=== PATIENT | female | born 1940 | race Caucasian/White ===

== ENCOUNTER 2017-12-27 13:50 | Observation (INO) | payer MEDICARE ==
[~2017-12-27] VITALS: Ht 162.6 cm; Wt 98.3 kg
[~2017-12-27 13:50] MED LIST: DARV; DEXAMETHASONE SOD PHOS 4 MG/ML VIAL IV ONE; ENAL20TA81; EXCEDRIN MIGRAINE; EZET10; FELO10TA; GARL500T; HYDR-2768; LIDOCAINE HCL 1% PF 5 ML SYRINGE OTHER ONE; LORA-392; OMEGA; ONDANSETRON HCL 4 MG/2 ML VIAL IV ONE; PHENYLEPH/NS 1000 MCG/10 ML SYR IV ONE; PRED20; PROPOFOL 200 MG/20 ML AMP IV ONE; PROZ20CA11; ROCURONIUM INJ 50 MG/5 ML SYRINGE IV PUSH ONE; SODIUM CHLORID 0.9% 500 ML INJ 500 ML IV ONE; TAB-TAB; VITA10002; VITA400C70; VITA500T10; [UNRECOGNIZED DRUG - OTHER]; [UNRECOGNIZED DRUG - OTHER]; [UNRECOGNIZED DRUG - OTHER]; [UNRECOGNIZED DRUG - OTHER]; [UNRECOGNIZED DRUG - OTHER]
[2017-12-27] MEDS ORDERED: LORazepam 1 MG TAB SL SCH (14:30)
[2017-12-27] MEDS ORDERED: POVIDONE IODINE 5% (ANTISEPSIS KIT) 4 APPLICATIONS EACH NARE PRN (14:30)
[2017-12-27] MEDS ORDERED: METOPROLOL TARTRATE 25 MG TAB PO PRN (14:30)
[2017-12-27] MEDS ORDERED: LACTATED RINGER'S 1000 ML IV PRN (14:30)
[2017-12-27] MEDS ORDERED: SODIUM CHLORID 0.9% 500 ML IV PRN (14:30)
[2017-12-27] MEDS ORDERED: CHLORHEXIDINE GLUCONATE 2 % 1 PACK (2 CLOTHS) TOPICAL PRN (14:30)
[2017-12-27] MEDS ORDERED: LOSA25TA PO (14:31)
[2017-12-27] MEDS ORDERED: LORA0.5T PO (14:31)
[2017-12-27] MEDS ORDERED: DILT120C9 PO (14:31)
[2017-12-27] MEDS ORDERED: WARF-23 PO (14:31)
[2017-12-27] MEDS ORDERED: TYLETAB34 PO (14:31)
[2017-12-27] MEDS ORDERED: METO50TA PO (14:31)
[2017-12-27] MEDS ORDERED: TRAM50TA PO (14:31)
[2017-12-27] MEDS ORDERED: ESCI20TA PO (14:31)
[2017-12-27] MEDS ORDERED: LEVO50TA4 PO (14:31)
[2017-12-27] MEDS ORDERED: FURO40TA PO (14:31)
[2017-12-27 14:33] VITALS: BP 151/90; PULSE 109; RESP 16; TEMP 97.6; O2SAT 94
[2017-12-27 14:36] LABS: AUTOMATED NEUTROPHIL # 3.3 TH/MM3 (1.8-7.7); BASOPHIL % 0.5 % (0.0-2.0); EOSINOPHIL # 0.1 TH/MM3 (0-0.4); HEMATOCRIT 40.9 % (35.0-46.0); HEMOGLOBIN 13.8 GM/DL (11.6-15.3); LYMPH % 24.8 % (9.0-44.0); LYMPHOCYTE # 1.3 TH/MM3 (1.0-4.8); MEAN CELL VOLUME 96.5 FL (80.0-100.0); MEAN CORPUSCULAR HEMOGLOBIN 32.6 PG (27.0-34.0); MEAN CORPUSCULAR HGB CONC 33.8 % (32.0-36.0); MEAN PLATELET VOLUME 8.7 FL (7.0-11.0); MONOCYTE # 0.5 TH/MM3 (0-0.9); NEUT % 63.7 % (16.0-70.0); PLATELET COUNT 185 TH/MM3 (150-450); RED BLOOD COUNT 4.24 MIL/MM3 (4.00-5.30); RED CELL DISTRIBUTION WIDTH 15.9 % (11.6-17.2); WHITE BLOOD COUNT 5.1 TH/MM3 (4.0-11.0)
[2017-12-27 14:50] LABS: INTERNATIONAL NORMALIZED RATIO 2.2 RATIO; PROTHROMBIN TIME - PATIENT 22.7 SEC (9.8-11.6)
[2017-12-27 15:06] LABS: BICARBONATE 26.2 MEQ/L (21.0-32.0); CALCIUM 8.8 MG/DL (8.5-10.1); CREATININE 0.9 MG/DL (0.50-1.00)
[2017-12-27] MEDS ORDERED: LEVOFLOXACIN 500 MG PREMIX INJ 100 ML IV ONE (15:15)
[2017-12-27] MEDS ORDERED: ISOPROTERENOL INJ PREMIX 50 ML IV ONE (16:38)
[2017-12-27] MEDS ORDERED: HEPARIN-D5W 25,000 U/250 ML 250 ML ONE (16:38)
[2017-12-27] MEDS ORDERED: PROTAMINE SULFATE 50 MG/5 ML VIAL ONE (16:38)
[2017-12-27] MEDS ORDERED: HEPARIN SODIUM - IV 10,000 UNITS/10 ML VIAL ONE ×2 (16:39)
[2017-12-27] MEDS ORDERED: HEPARIN-NS/PF INJ 2,000 ML ONE (16:53)
[2017-12-27] MEDS: SODIUM CHLORID 0.9% 500 ML INJ 500 ML IV SCH (17:03)
[2017-12-27] MEDS ORDERED: LIDOCAINE HCL 1% PF 30 ML VIAL ONE (17:20)
[2017-12-27] MEDS ORDERED: SUGAMMADEX SODIUM 200 MG/2 ML VIAL IV PUSH ONE (18:22)
--- NOTE | 2017-12-27 19:41 | PD.CARD ---
Atrial Fibrillation Ablation PROCEDURE DATE: Dec 27, 2017 PROCEDURES PERFORMED: 1. Electrophysiology study on Isuprel infusion 2. CS cannulation 3. 3-D mapping 4. Transseptal approach 5. Right and left heart catheterization 6. Intracardiac echo 7. Radiofrequency ablation of atrial fibrillation 8. Pulmonary vein isolation 9. Posterior wall ablation 10. Mitral valve isolation 11. Mitral line creation 12. Left atrial tachycardia ablation 13. Roof line creation 14. Floor line creation 15. Anterior and posterior ablation 16. Cardioversion INDICATIONS FOR THE PROCEDURE Ms. Reynolds is a 77-year-old female with hx of atrial fibrillation, very symptomatic, on anticoagulation referred for electrophysiology study and ablation. The risks, the nature and the benefits of the procedure were clearly stated to her. The risks include pneumothorax, cardiac perforation, stroke, need for open heart surgery and even . The patient understood and agreed to proceed. DESCRIPTION OF THE PROCEDURE IN DETAIL After written informed consent was obtained prior to esophageal echocardiogram, the patient was kept on the table where she was prepped and draped in the usual sterile fashion. Conscious sedation was initiated and maintained throughout the procedure by the anesthesiologist. Once sedation was verified, the right and left inguinal areas were anesthetized with 2% Xylocaine. Using modified Seldinger technique, the left femoral vein was cannulated on three occasions, three guidewires were advanced. Over the wire a 6, 7 and a 10-Macedonian Hemaquet were advanced. Then the left femoral artery was cannulated on one occasion, one guidewire was advanced. Over the wire a 4-Macedonian Hemaquet was advanced. Then the right femoral vein was cannulated on one occasion, one guidewire was advanced. Over the wire a 8-Macedonian Hemaquet was advanced. Then under fluoroscopic guidance through the 6 and 7-Macedonian Hemaquet, two 5-Macedonian Ziggy curved quadripolar electrophysiology catheters were advanced and placed around the His as well as coronary sinus. Basic interval was measured. The patient was in atrial fibrillation. Through the 10-Macedonian Hemaquet, a Cordis Espinoza AcuNav intracardiac echo catheter was advanced and placed at the right atrium. Multiple view was obtained. There is pericardial effusion, pulmonary vein was seen, atrial septal was visualized. Then the 8-Macedonian Hemaquet in the right femoral vein was exchanged for Agilis transseptal sheath that was placed all the way to the superior vena cava. Through the sheath a Danielle needle was advanced, then the sheath, the dilator and the needle were progressed until foci engaged. Once engaged, the needle was advanced. RF was delivered for 2 seconds. I was able to cross into the left atrium. Once the needle crossed, the dilator was advanced. Once the dilator crossed, the sheath was advanced. Once the sheath crossed, the dilator and the needle were removed. At this point I did flood the system and fluid movement was seen in the left atrium the indicates the sheath is in good position. The patient already received 6,000 units of heparin. The goal is to keep an ACT around 350 during ablation. Then through the sheath a St. Yvan 20 pulse circumferential catheter was advanced. Using [employer] endocardial solution mapping system, a two- dimensional configuration of the left atrium was obtained. Points were taken at the left superior and inferior veins, right superior and inferior veins, mitral valve, and appendages. Then through the sheath a St. Yvan TactiCath 65cm 3.5mm irrigated tipped mapping and radiofrequency ablation catheter was advanced. Esophageal probe was placed temperature monitoring during ablation. When it increased to 0.5 degrees Celsius above baseline, I moved to a different area of the atrium. First I did isolate the left superior and inferior vein. I did make a big [place] around the veins. Posterior was ablated. Then a roof line was created, a floor line was created, a mitral line was isolated, then the mitral valve was isolated. left atrial appendage was isolated. I did create a line from the floor to the roof area, passing by the left atrial appendage. The patient was in left atrial tachycardia. Then the right superior and inferior veins were isolated. I did remap the atrium. There is no significant signal in the atrium. At this point I decided to proceed with cardioversion. A 200 sync biphasic joule was delivered that converted the patient into sinus rhythm. At that point I did advance the circumferential catheter again into the vein. There was no signal into the vein, pacing from the vein showed no conduction to the atrium. Isuprel infusion was initiated at 10 mcg for over 10 minutes. No tachyarrhythmia was induced, post Isuprel no tachyarrhythmia was induced. At that point the procedure was complete. All catheters were removed, atrial septal sheath was exchanged for 9-Macedonian Hemaquet , intracardiac echo showed no pericardial effusion. There is still good flow in the pulmonary vein. The patient is going to be transferred to the recovery room. No incident report. The patient tolerated the procedure. Blood loss was minimal. FINDINGS 1. Electrocardiogram: At baseline the patient was in atrial fibrillation, post procedure the patient was in sinus rhythm. 2. Basic interval: Base cycle length was around 520. Post ablation she was around 1040 milliseconds. AH at 62 and HV at 64 milliseconds. 3. Tachyarrhythmia: Atrial fibrillation was mapped and ablated. Atrial tachycardia was ablated. The ablation was successful. CONCLUSION Successful electrophysiology study, mapping, radiofrequency ablation of atrial fibrillation, left atrial tachycardia, pulmonary vein isolation, posterior ablation, mitral valve isolation, mitral line creation, roof line creation, floor line creation, left atrial tachycardia, and cardioversion. COMMENTS AND RECOMMENDATIONS The patient is going to be transferred to the telemetry unit. Will be observed and when stable can be discharged home. Angeles Munson MD Dec 27, 2017 19:41
[2017-12-27] MEDS ORDERED: METOCLOPRAMIDE HCL 10 MG/2 ML VIAL IV PUSH PRN (19:45)
[2017-12-27] MEDS ORDERED: oxyCODONE/ACETAMINOPHEN 5 MG/325 MG TAB PO PRN ×2 (19:45)
[2017-12-27] MEDS ORDERED: LORazepam 2 MG/ML VIAL IV PUSH PRN (19:45)
[2017-12-27] MEDS ORDERED: ATROPINE SULFATE 1 MG/ML VIAL IV PUSH PRN (19:45)
[2017-12-27] MEDS ORDERED: LIDOCAINE HCL 1% 50 ML VIAL INFIL PRN (19:45)
--- NOTE | 2017-12-27 19:59 | CATHPROC ---
Patient Name: MARIA G CHRISTIE Study #: [id number] Initial MD: Angeles Munson Date of : 1940 Study Date: 12/27/2017 Cardiac Catheterization Report 12/27/2017 7:59:43 PM Financial #: [id number] 1 of 10 Patient Name: MARIA G CHRISTIE Study #: [id number] Initial MD: Angeles Munson Date of : 1940 Study Date: 12/27/2017 Entire Case Report Patient Information Patient Name MARIA G CHRISTIE Date of 1940 Age 77 years Financial # [id number] Gender F AlternateID Lab Number 2 Room Number DC08 Height (in) 64.0 Height (cm) 162.5 BSA 2.01 Weight (lbs) 212.7 Weight (kg) 96.7 Patient Address/Phone Number Home Address [facility] Home Phone Number [address] [facility] [address] Study Information Study Number Admission Scheduled Start Study Start [id number] Dec 27 2017 1:50PM 12/27/2017 Dec 27 2017 4:36PM [place] Service Electrophysiology Study Admit Source Facility Department Other [facility] - In Tube Conversion Technician Physician and Clinical Staff Initial Angeles Luo Machine Operator Transplanter Fanny Us,RT(R) TECH2 Other Anesthesia, LIFE SKILLS SPECIALIST Recorder Gayle MccoyRN Recorder Oneida Anguiano ,LYDIAN Scrub Jose HamlinRT(R) Procedures Performed Procedure Location (Site) Vessel Name Ablation Procedure Cardioversion ICE CATHETER INSERT RA Atruim Equipment Time Manager Compensation Description Size Mfg Part Number Used/Scraped NEEDLE, TRANSSEPTAL NRG 98 [id number] 17:23 [facility] Used C1 *[id number] [employer]/ EP [id number] 17:23 KIT, TRANSDUCER / AFIB Used PACER *[id number] 12/27/2017 7:59:43 PM Financial #: [id number] 2 of 10 Patient Name: MARIA G CHRISTIE Study #: [id number] Initial MD: Angeles Munson Date of : 1940 Study Date: 12/27/2017 [id number] CATHETER, TACTICATH ABLAT BUNDLE 17:23 [facility] Used 65 BUNDLE *[id number] BUNDLE [id number] CATHETER, FR7 OPTIMA SPIRAL 17:23 [facility] FR7 *[id number]- Used BUNDLE BUNDLE [id number] 17:23 [facility] CATHETER, JSN, QUAD BUNDLE FR 5 *[id number]- Used BUNDLE [id number] 17:23 [facility] CATHETER, JSN, QUAD BUNDLE FR 5 *[id number]- Used BUNDLE [id number] SET, COOL POINT TUBING 17:23 [facility] *[id number]- Used BUNDLE BUNDLE SHEATH, FR8.5 STEERABLE SM 17:23 [facility] 71CM [id number] Used 71CM BUNDLE [id number] 19:33 CARD[employer] MEDICAL VASCADE, FR5 CLOSURE SYSTEM FR 5 Used *[id number] 19:33 C[employer] MEDICAL VASCADE, FR6 CLOSURE SYSTEM FR 6\\7 Used *[id number] 19:33 CARD[employer]A MEDICAL VASCADE, FR6 CLOSURE SYSTEM FR 6\\7 Used *[id number] 19:33 CARDIVA MEDICAL VASCADE, FR6 CLOSURE SYSTEM FR 6\\7 Used *[id number] 19:33 CARDIVA MEDICAL VASCADE, FR6 CLOSURE SYSTEM FR 6\\7 Used *[id number] COVER, TRANSDUCER CABLE 612-113 17:23 [employer] Used ACUNAV *[id number] 17:23 CORDIS/PACER SHEATH, FR10 ALEXIA 11CM FR 10 Used *[id number] 17:23 CORDIS/PACER SHEATH, FR9 ALEXIA 11CM FR 9 [id number] Used [id number] 17:23 [employer]RIES BLANKET,WARM AIR CCL * Used *[id number] 17:23 [employer] PACK, CCL CUSTOM * Used *8134470 17:23 MEDLINE PACER ONTIVEROS, LIMB * 2530 *[id number] Used 17:24 [facility] MEDICAL SHEATH, FR5.5 PRELUDE 11CM FR 5 [id number] Used [id number] 17:23 NAMIC TUBING, HIGH PRESSURE 48" 48" Used *[id number] [id number] 17:23 NAMIC TUBING, HIGH PRESSURE 48" 48" Used *[id number] [id number] 17:23 [facility] MEDICAL ELECTRODE KIT, MARCELO X SURFACE * Used *0070951 678484 17:23 [facility] MEDICAL SHEATH, EPS, FR6 FAST CATH FR 6 Used *[id number] 17:23 [facility] MEDICAL SHEATH, EPS, FR7 FAST CATH FR 7 [id number] Used 157748 17:23 [facility] MEDICAL SHEATH, EPS, FR8 FAST CATH FR 8 Used *[id number] CATHETER, ACUNAV FR10 ICE [id number] 18:01 CADE FR 10 Used (CADE) *[id number] [facility] PAD, ELECTROSURGICAL 17:23 * [id number] *[id number] Used SURGICAL GROUNDING (BLUE) 12/27/2017 7:59:43 PM Financial #: [id number] Patient Name: MARIA G CHRISTIE Study #: [id number] Initial MD: Angeles Munson Date of : 1940 Study Date: 12/27/2017 Insurance Information Insurance Payor Private Health Insurance Third Libertarian Third Libertarian Number [facility] - MCR O FHCMCRHMO History: Allergies Allergy Reaction penicillin G Rash History: Risk Factors Hypertension Dyslipidemia Yes Yes Diabetes Labs Hgb (g/dl) Hct (%) RBC (MIL/MM3) WBC (l/cumm) Platelets (thousands) 11.60-17.00 35.00-51.00 4.00-5.90 4.00-11.00 150.00-450.00 13.0 40 4.2 5.1 185 Glucose (mg/dl) BUN (mg/dl) Creatinine (mg/dl) BUN:Creatinine (1:x) 74.00-106.00 7.00-18.00 0.50-1.30 10.00-20.00 99 20 2.2 9.1 Na (meq/l) K (meq/l) 136.00-145.00 3.50-5.10 140 3.9 INR (PTT:PT) 0.90-1.10 2.2 Medication Medication Total Dose (Bolus/Oral) Medication Total Dosage/Unit 1% XYLOCAINE 40 mL HEPARIN 9000 units PROTAMINE 40 mg 12/27/2017 7:59:43 PM Financial #: [id number] 4 of 10 Patient Name: MARIA G CHRISTIE Study #: [id number] Initial MD: Angeles Munson Date of : 1940 Study Date: 12/27/2017 Medications (Bolus/Oral) Medication Time Given Dosage/Unit Administered By Reason 1% XYLOCAINE 12/27/2017 5:54:00 PM 20 mL Angeles Munson 20 mL 1% XYLOCAINE given in lab by Angeles Munson in Left Groin via Subcutaneous. 1% XYLOCAINE 12/27/2017 5:57:28 PM 20 mL Angeles Munson 20 mL 1% XYLOCAINE given in lab by Angeles Munson in Right Groin via Subcutaneous. HEPARIN 12/27/2017 6:06:35 PM 6000 units Anesthesia, LIFE SKILLS SPECIALIST 6000 units HEPARIN given in lab by Anesthesia, LIFE SKILLS SPECIALIST via Peripheral IV. Ordered by Angeles Munson. HEPARIN 12/27/2017 6:22:35 PM 3000 units Anesthesia, LIFE SKILLS SPECIALIST 3000 units HEPARIN given in lab by Anesthesia, LIFE SKILLS SPECIALIST via Peripheral IV. Ordered by Angeles Munson. PROTAMINE 12/27/2017 7:37:23 PM 40 mg Anesthesia, LIFE SKILLS SPECIALIST As per physicians charlie bal order 40 mg PROTAMINE given in lab by Anesthesia, LIFE SKILLS SPECIALIST via Peripheral IV. Ordered by Angeles Munson. Reason: As per physicians verbal order. Medication (Drip) Medication Time Given Dosage/Unit Concentration/Unit Diluent (ml) Solution ISUPREL 12/27/2017 7:16:28 PM 10 mcg/min 1 mg 250 NaCl .9 10 mcg/min ISUPREL given in lab by Anesthesia, LIFE SKILLS SPECIALIST via Peripheral IV. Pump/Drip Flow = 150 ml/hr usi ng NaCl .9 with a concentration of 1 mg in 250 ml. Ordered by Angeles Munson. Reason: As per physicians verbal order. 12/27/2017 7:59:43 PM Financial #: [id number] 5 of 10 Patient Name: MARIA G CHRISTIE Study #: [id number] Initial MD: Angeles Munson Date of : 1940 Study Date: 12/27/2017 Initial Case Assessment Cardiovascular HR Rhythm NIBP Chest Pain 128 af 124/85 0 Edema Present Skin color Skin Severe Normal Warm Dry Circulatory - Right Pulses Dorsalis Pedis 1 Scale (0,1,2,3,4,d) Circulatory - Left Pulses Dorsalis Pedis 1 Scale (0,1,2,3,4,d) Circulatory - Lower Extremities Color Lower Right Color Lower Left Normal Normal Neurological State Oriented to time-place- Alert Moves all extremities person Respiration - General Respiration Rate SpO2 (%) (B/min) 22 90 12/27/2017 7:59:43 PM Financial #: [id number] 6 of 10 Patient Name: MARIA G CHRISTIE Study #: [id number] Initial MD: Angeles Munson Date of : 1940 Study Date: 12/27/2017 Final Case Assessment Cardiovascular HR Rhythm NIBP Chest Pain 68 sr 126/76 0 Edema Present Skin color Skin Severe Normal Warm Dry Circulatory - Right Pulses Dorsalis Pedis 1 Scale (0,1,2,3,4,d) Circulatory - Left Pulses Dorsalis Pedis 1 Scale (0,1,2,3,4,d) Circulatory - Lower Extremities Color Lower Right Color Lower Left Normal Normal Neurological State Drowsy Comment: remains intubated Respiration - General Respiration Rate SpO2 (%) (B/min) 16 89 Chronological Log Time Study Chronological Log 16:48:03 Patient arrived via Bed. 16:48:04 Patient Name, D.O.B, / Armband Verified By R.N. 16:48:05 Consent signed by the physician and the patient and verified by the In Tube Conversion Technician staff. 16:48:06 Pre-op and post- op instructions given; patient acknowledges understanding of instructions. 16:48:07 Verbal Stimulation=2 Physical Stimulation=2 Airway=2 Respiration=2 TOTAL=8. (0=absent, 1=li mited, 2=present) 16:48:07 Anesthesia at bedside. Assumes care of patient. Sandra 16:48:13 Patient has been NPO for More than 6Hrs. 16:48:14 Skin Breakdown- generaliezed reddness and rash to legs. 12/27/2017 7:59:43 PM Financial #: [id number] 7 of 10 Patient Name: MARIA G CHRISTIE Study #: [id number] Initial MD: Angeles Munson Date of : 1940 Study Date: 12/27/2017 16:48:34 Patient Warmer Placed on the Table. 16:48:35 Disposable Defibrillator Pads Placed On Patient. 16:48:36 Birdie Prominences Protected 16:48:38 A # 20 IV was noted in the Antecubital (left). Grade = 0 0.9ns kvo 16:48:53 A # 20 IV was noted in the Antecubital (right). Grade = 0 0.9ns kvo 16:49:07 History and physical on the chart or being dictated. Assessment: Initial Case, GF=712 BPM, Rhythm=af, TRUO=313/85 mmhg, Chest Pain=0, Edema=Severe, Color=Normal, Skin = Warm, Dry Right Pulses: Mat Ped=1 Left Pulses: Mat Ped=1 17:04:39 Lower Right Extremities: Color=Normal Lower Left Extremities: Color=Normal Neurological: State=Alert, Ox3, GODWIN Respiration: Resp=22 B/min, SpO2=90 % 17:05:14 Table restraints applied according to hospital policy 17:11:35 Anesthesiologist, Dr. De La Cruz, at bedside for intubation 17:12:21 Bilateral groins prepped with 2% chlorhexidine, and draped after a 3 minute waiting time. 17:46:16 MD arrived. Time Out. Correct patient, procedure, procedure equipment, site and side verified with physicia n present. Time 17:51:18 concurred by MD, individual staff and LIFE SKILLS SPECIALIST. Time Out #2 - Consents verified, patient in correct position, all results are labled and displa yed, safety precautions 17:51:21 taken, antibiotics administered. Time out concurred by MD, individual staff and LIFE SKILLS SPECIALIST in procedu re 17:51:32 Case Start 17:51:38 Unruly in progress. 17:53:16 Unruly complete. 17:54:00 20 mL 1% XYLOCAINE given in lab by Angeles Munson in Left Groin via Subcutaneous. 17:54:31 Vascular access was obtained in the Fem Vein (left). 17:54:49 Vascular access was obtained in the Fem Vein (left). 17:54:52 Vascular access was obtained in the Fem Vein (left). 17:55:10 Vascular access was obtained in the Fem Art (left). A SHEATH, FR5.5 PRELUDE 11CM FR 5 was advanced into the Fem Art (left) using the Modified Seldi nger technique. 17:55:24 0.9ns pressure bag connected. 17:56:04 A SHEATH, EPS, FR6 FAST CATH FR 6 was advanced into the Fem Vein (left) using the Modified Seldinger technique. 17:56:18 A SHEATH, EPS, FR7 FAST CATH FR 7 was advanced into the Fem Vein (left) using the Modified Seldinger technique. 17:56:28 A SHEATH, FR10 ALEXIA 11CM FR 10 was advanced into the Fem Vein (left) using the Modified S eldinger technique. 17:57:28 20 mL 1% XYLOCAINE given in lab by Angeles Munson in Right Groin via Subcutaneous. 17:58:07 Vascular access was obtained in the Fem Vein (right). 17:58:09 A SHEATH, EPS, FR8 FAST CATH FR 8 was advanced into the Fem Art (right) using the Modified Seldinger technique. A CATHETER, JSN, QUAD BUNDLE FR 5 was advanced vis Fem Vein (left) and placed in the CS. Placem ent was visually 17:59:55 confirmed under fluoroscopy. A CATHETER, JSN, QUAD BUNDLE FR 5 was advanced vis Fem Vein (left) and placed in the HIS. Place ment was 18:00:05 visually confirmed under fluoroscopy. 18:00:40 CATHETER, ACUNAV FR10 ICE (CADE) FR 10 Was Postioned. 12/27/2017 7:59:43 PM Financial #: [id number] Patient Name: MARIA G CHRISTIE Study #: [id number] Initial MD: Angeles Munson Date of : 1940 Study Date: 12/27/2017 A SHEATH, FR8.5 STEERABLE SM 71CM BUNDLE 71CM was exchanged in the Fem Vein (right). This was n ecessary in 18:02:16 order to accomodate a larger catheter. 18:02:44 [place] in 18:04:14 A eps was advanced to the right atrium and passed through the septal wall to the left atriu m. 18:05:39 [place] out 18:06:35 6000 units HEPARIN given in lab by Anesthesia, LIFE SKILLS SPECIALIST via Peripheral IV. Ordered by Manuel Munson. A CATHETER, FR7 OPTIMA SPIRAL BUNDLE FR7 was advanced vis Fem Vein (right) and placed in the LA . Placement 18:06:53 was visually confirmed under fluoroscopy. 18:07:52 Mapping in progress 18:11:55 Activated Clotting Time Drawn 18:11:58 [place] out A CATHETER, TACTICATH ABLAT 65 BUNDLE was advanced vis Fem Vein (right) and placed in the LA. P lacement was 18:16:30 visually confirmed under fluoroscopy. 18:16:39 Ablation in progress 18:20:51 ACT (Normal Range 90-180) = 303 18:22:35 3000 units HEPARIN given in lab by Anesthesia, LIFE SKILLS SPECIALIST via Peripheral IV. Ordered by Manuel Munson. 18:31:14 Activated Clotting Time Drawn 18:38:10 ACT (Normal Range 90-180) = 405 18:52:06 Ablation continues 19:00:00 Activated Clotting Time Drawn 19:08:10 ACT (Normal Range 90-180) = 414 19:11:53 Ablation cath out. 19:14:13 ECG rhythm of AF noted. Patient cardioverted at 200 joules. Success synch 19:15:23 Monitor SR 10 mcg/min ISUPREL given in lab by Anesthesia, LIFE SKILLS SPECIALIST via Peripheral IV. Pump/Drip Flow = 150 ml/ hr using NaCl .9 19:16:28 with a concentration of 1 mg in 250 ml. Ordered by Angeles Munson. Reason: As per physicians charlie bal order. 19:26:59 Isuprel off 19:28:23 All catheter(s) removed without difficulty. A SHEATH, FR9 ALEXIA 11CM FR 9 was exchanged in the Fem Vein (right). This was necessary in ord er to minimize 19:30:12 site leakage. 19:30:42 PACU called. Spoke to Pepe 19:31:10 Bedside Report will be given. 19:31:46 VASCADE, FR6 CLOSURE SYSTEM FR 6\\7 placement in the Fem Vein (left) 19:33:15 VASCADE, FR6 CLOSURE SYSTEM FR 6\\7 placement in the Fem Vein (left) 19:33:20 VASCADE, FR6 CLOSURE SYSTEM FR 6\\7 placement in the Fem Vein (left) 19:33:33 VASCADE, FR5 CLOSURE SYSTEM FR 5 placement in the Fem Art (left) 19:35:42 VASCADE, FR6 CLOSURE SYSTEM FR 6\\7 placement in the Fem Vein (right) 40 mg PROTAMINE given in lab by Anesthesia, LIFE SKILLS SPECIALIST via Peripheral IV. Ordered by Angeles Munson. Boby priyanka: As per 19:37:23 physicians verbal order. 19:40:20 Activated Clotting Time Drawn 19:55:21 Activated Clotting Time Redrawn 12/27/2017 7:59:43 PM Financial #: [id number] Patient Name: MARIA G CHRISTIE Study #: [id number] Initial MD: Angeles Munson Date of : 1940 Study Date: 12/27/2017 19:56:53 Defibrillator and ground pads removed. Skin intact. 19:57:00 Sterile dressing applied to sites Assessment: Final Case, HR=68 BPM, Rhythm=sr, CRDM=583/76 mmhg, Chest Pain=0, Edema=Severe, Co randy=Normal, Skin = Warm, Dry Right Pulses: Mat Ped=1 Left Pulses: Mat Ped=1 19:57:25 Lower Right Extremities: Color=Normal Lower Left Extremities: Color=Normal Neurological: State=Drowsy, Comment=remains intubated Respiration: Resp=16 B/min, SpO2=89 % 19:58:11 Case End (Physician broke scrub) 19:58:16 No case complications noted. 19:58:24 ACT (Normal Range 90-180) = 139 19:58:49 Pt extubated 19:59:00 Ablation procedure performed: AFIB. 19:59:05 EP Procedure was performed. 20:02:12 [facility] To pacu w electronic industrial controls mechanic End Study - Contrast Media Used In Study Contrast Total Opened (mL) Total Used (mL) Total Wasted (mL) Unspecified 0 0 0 End Study - Maximum Contrast Load Max Contrast Load (mL) 219.7 End Study - Radiation Exposure Fluoro Time (minutes) 1.1 End Study - Patient Disposition Complications Transferred To Interventional Outcome No Telemetry Bed successful 12/27/2017 7:59:43 PM Financial #: [id number]
[2017-12-27] MEDS ORDERED: ONDANSETRON ODT 4 MG TAB PO PRN (20:15)
[2017-12-27] MEDS ORDERED: *RESP: ALBUTEROL 2.5 MG/3 ML NEB (PRN) PERIprocedural Use ONLY NEB ONE (20:16)
[2017-12-27] MEDS ORDERED: MIDAZOLAM HCL 2 MG/2 ML VIAL ONE (20:22)
[2017-12-27] MEDS ORDERED: BACITRACIN OINT 0.9 GM PKT TOP ONE (20:30)
[2017-12-27 21:00] VITALS: BP 109/71; PULSE 66; PULSE 69; RESP 16; TEMP 98; O2SAT 92
[2017-12-27] MEDS ORDERED: DO NOT ADM ANY ANTICOAGULANT DRUGS PRN (21:00)
--- NOTE | 2017-12-27 21:21 | EKG ---
Date Performed: 12/27/2017 Time Performed: 20:27:24 PTAGE: 77 years EKG: Sinus rhythm Nonspecific ST and T wave abnormalities ABNORMAL ECG Compared to prior electrocardiogram, Sinus rhyt hm has replaced atrial fibrillation. PREVIOUS TRACING : 01/28/2007 09.26 DOCTOR: Mark Olea Interpretating Date/Time 12/27/2017 21:20:40
[2017-12-27] MEDS: AMIODARONE 200 MG TAB PO SCH (21:27)
[2017-12-27] MEDS: METOPROLOL TARTRATE 50 MG TAB PO SCH (21:27)
--- NOTE | 2017-12-27 21:31 | EKG ---
Date Performed: 12/27/2017 Time Performed: 14:35:04 PTAGE: 77 years EKG: Atrial fibrillation with rapid ventricular response. Nonspecific ST and T wave abnormalitie s Low QRS voltages in limb leads Abnormal ECG Compared to prior electrocardiogram, Atrial fibrillatio n has replaced Sinus rhythm . PREVIOUS TRACING : 01/28/2007 09.26 DOCTOR: Mark Olea Interpretating Date/Time 12/27/2017 21:29:51
[2017-12-27 22:00] VITALS: PULSE 70
[2017-12-27 22:10] VITALS: O2SAT 95
[2017-12-27 23:00] VITALS: BP 131/78; PULSE 76; RESP 16; TEMP 98.4; O2SAT 94
[2017-12-27] MEDS: RESP: ALBUTEROL 2.5 MG/IPRATROPIUM 0.5 MG NEB (PRN) NEB (23:13)
[2017-12-27 23:15] VITALS: O2SAT 94
[2017-12-27] MEDS: LORazepam 0.5 MG TAB PO PRN (23:29)
[2017-12-28] VITALS (27 sets, daily range): BP systolic 104–131; BP diastolic 50–75; PULSE 66–84; RESP 16–20; TEMP 97.5–98.6; O2SAT 92–95
[2017-12-28] MEDS: traMADol HCL 50 MG TAB PO PRN ×2 (01:28→09:12)
[2017-12-28] MEDS: RESP: ALBUTEROL 2.5 MG/IPRATROPIUM 0.5 MG NEB (PRN) NEB ×2 (01:59→04:00)
[2017-12-28] MEDS ORDERED: FUROSEMIDE 40 MG/4 ML VIAL IV PUSH SCH (02:20)
[2017-12-28] MEDS ORDERED: BENZOCAINE-MENTHOL (SUGAR FREE) 15 MG-3.6 MG LOZENGE BUCCAL PRN (02:45)
[2017-12-28] MEDS: LEVOTHYROXINE SODIUM 50 MCG TAB PO SCH (05:51)
[2017-12-28 06:41] LABS: INTERNATIONAL NORMALIZED RATIO 2.5 RATIO; PROTHROMBIN TIME - PATIENT 25.2 SEC (9.8-11.6)
--- NOTE | 2017-12-28 07:02 | EKG ---
Date Performed: 12/28/2017 Time Performed: 04:10:42 PTAGE: 77 years EKG: Sinus rhythm Possible anterior infarct - age undetermined Nonspecific ST and T wave abnormalities Low QRS voltage s in limb leads Abnormal ECG No significant change from prior electrocardiogram. DOCTOR: Mark Olea Interpretating Date/Time 12/28/2017 07:00:55
[2017-12-28] MEDS: SODIUM CHLORID 0.9% 500 ML INJ 500 ML IV SCH ×2 (07:10→23:50)
--- NOTE | 2017-12-28 08:37 | PD.CONS ---
HPI Service [facility] Hospitalists Consult Requested By Primary Care Physician Non-Staff Diagnoses: History of Present Illness Pt is 77 yo woman with recurrent afib/rvr and hypothyroidism. Says she was hospitalized in [place] until early December and after dc she has had problems with sob with exertion and lower extremity edema. She reports developing a rash her doctor changed the formulation of warfarin. She was admitted yesterday after an EPS with Dr Munson with RF afib ablation, left atrial tach ablation, pulm vein isolation, posterior ablation, mitral valve isolation, mitral line creation, roof line creation, floor line creation, and cardioversion. After the procedure pt was hypoxic requiring 4lnc. She was wheezing and sent to [facility] overnight. Given nebs and IV lasix with improvement in wheeze this AM but still not back to baseline. Review of Systems Other sob edema afib Past Family Social History Past Medical History afib htn hypothyroidism depression s/p appe anxiety Reported Medications Escitalopram (Escitalopram Oxalate) 20 Mg Tab 20 Mg PO DAILY Lorazepam 0.5 Mg Tab 0.5 Mg PO Q8H PRN Losartan (Losartan Potassium) 25 Mg Tab 25 Mg PO DAILY Tramadol (Tramadol HCl) 50 Mg Tab 50 Mg PO Q6H PRN Warfarin 5 Mg Tab 5 Mg PO DAILY Tylenol-Codeine #3 (Acetaminophen-Codeine) 300-30 mg Tab 1-2 Tab PO Q6H PRN Metoprolol Tartrate 50 Mg Tab 50 Mg PO BID Furosemide 40 Mg Tab 40 Mg PO DAILY Levothyroxine (Levothyroxine Sodium) 50 Mcg Tab 50 Mcg PO DAILY [Excedrin Migraine] [Leanology] [[place]] [Gluco Balance] [Ginkgo Bilabo] [Garlic] [Dalila-Juan David/Mag. D] [Energy Now] Allergies: Coded Allergies: penicillin G (Unverified Allergy, Severe, Rash, 02/16/17) Family History nc Social History no etoh/tob Physical Exam Vital Signs heart reg lung few basilar crackles 2plus edema lower ext. in chair Vital Signs Date Time Temp Pulse Resp B/P (MAP) Pulse Ox O2 Delivery O2 Flow Rate FiO2 12/28/17 07:00 84 12/28/17 05:00 72 12/28/17 04:00 73 12/28/17 03:20 80 130/74 (92) 12/28/17 03:00 97.6 78 20 120/75 (90) 93 12/28/17 03:00 78 12/28/17 02:00 82 12/28/17 01:00 76 12/28/17 00:00 78 12/27/17 23:15 94 Nasal Cannula 4.00 12/27/17 23:00 76 12/27/17 23:00 98.4 76 16 131/78 (95) 94 12/27/17 22:10 95 Nasal Cannula 4.00 12/27/17 22:00 70 12/27/17 21:00 66 12/27/17 21:00 98.0 69 16 109/71 (84) 92 12/27/17 20:45 68 16 115/58 (77) 92 Nasal Cannula 4 12/27/17 20:30 67 16 109/58 (75) 91 Nasal Cannula 4 12/27/17 20:12 98.7 68 16 116/68 (84) 90 Nasal Cannula 4 12/27/17 14:33 97.6 109 16 151/90 (110) 94 Laboratory Laboratory Tests Test 12/27/17 14:15 12/28/17 06:15 White Blood Count 5.1 Red Blood Count 4.24 Hemoglobin 13.8 Hematocrit 40.9 Mean Corpuscular Volume 96.5 Mean Corpuscular Hemoglobin 32.6 Mean Corpuscular Hemoglobin Concent 33.8 Red Cell Distribution Width 15.9 Platelet Count 185 Mean Platelet Volume 8.7 Neutrophils (%) (Auto) 63.7 Lymphocytes (%) (Auto) 24.8 Monocytes (%) (Auto) 10.0 Eosinophils (%) (Auto) 1.0 Basophils (%) (Auto) 0.5 Neutrophils # (Auto) 3.3 Lymphocytes # (Auto) 1.3 Monocytes # (Auto) 0.5 Eosinophils # (Auto) 0.1 Basophils # (Auto) 0.0 CBC Comment DIFF FINAL Differential Comment Prothrombin Time 22.7 25.2 Prothromb Time International Ratio 2.2 2.5 Activated Partial Thromboplast Time 30.3 29.3 Blood Urea Nitrogen 20 Creatinine 0.90 Random Glucose 99 Calcium Level 8.8 Sodium Level 140 Potassium Level 3.9 Chloride Level 103 Carbon Dioxide Level 26.2 Anion Gap 11 Estimat Glomerular Filtration Rate 60 Result Diagram: 12/27/17 1415 12/27/17 1415 Assessment and Plan Problem List: (1) Afib ICD Codes: I48.91 - Unspecified atrial fibrillation Status: Acute Plan: Pt is 77 yo woman with recurrent afib/rvr and hypothyroidism. Says she was hospitalized in [place] until early December and after dc she has had problems with sob with exertion and lower extremity edema. She reports developing a rash her doctor changed the formulation of warfarin. She was admitted yesterday after an EPS with Dr Munson with RF afib ablation, left atrial tach ablation, pulm vein isolation, posterior ablation, mitral valve isolation, mitral line creation, roof line creation, floor line creation, and cardioversion. After the procedure pt was hypoxic requiring 4lnc. She was wheezing and sent to [facility] overnight. Given nebs and IV lasix with improvement in wheeze this AM but still not back to baseline. check bmp this AM wean off o2 resume po lasix this AM and give additional iv if needed. ambulate/PT eval cardiac meds resumed by dr Munson reassess for dc home later today might need HHC. pt lives alone. Gary Manning MD Dec 28, 2017 08:37
[2017-12-28] MEDS ORDERED: WARFARIN SOD 5 MG TAB PO SCH (09:00)
[2017-12-28] MEDS ORDERED: FUROSEMIDE 40 MG TAB PO SCH (09:00)
[2017-12-28] MEDS: LOSARTAN 25 MG TAB PO SCH (09:11)
[2017-12-28] MEDS: ESCITALOPRAM OXALATE 20 MG TAB PO SCH (09:11)
[2017-12-28] MEDS: METOPROLOL TARTRATE 50 MG TAB PO SCH ×2 (09:12→21:22)
[2017-12-28 09:50] LABS: BICARBONATE 29.2 MEQ/L (21.0-32.0); CALCIUM 8.3 MG/DL (8.5-10.1); CREATININE 0.94 MG/DL (0.50-1.00)
[2017-12-28] MEDS ORDERED: FUROSEMIDE 40 MG/4 ML VIAL IV PUSH ONE (13:15)
[2017-12-28] MEDS ORDERED: WARFARIN SOD 4 MG TAB PO SCH (16:00)
[2017-12-28] MEDS: LORazepam 0.5 MG TAB PO PRN (21:22)
[2017-12-28] MEDS: AMIODARONE 200 MG TAB PO SCH (21:22)
[2017-12-29] VITALS (18 sets, daily range): BP systolic 96–112; BP diastolic 54–91; PULSE 66–86; RESP 18; TEMP 97.8–98.3; O2SAT 92–94
[2017-12-29] MEDS: RESP: ALBUTEROL 2.5 MG/IPRATROPIUM 0.5 MG NEB (PRN) NEB (03:35)
[2017-12-29] MEDS: LEVOTHYROXINE SODIUM 50 MCG TAB PO SCH (06:18)
[2017-12-29 06:47] LABS: BICARBONATE 31.8 MEQ/L (21.0-32.0); CALCIUM 8.2 MG/DL (8.5-10.1); CREATININE 0.79 MG/DL (0.50-1.00)
--- NOTE | 2017-12-29 07:11 | HHI.FF ---
Face to Face Verification Diagnosis: (1) Afib Physical Therapy Order: Evaluate and Treat, Improve ambulation Home Health Nursing Order: Medical education Signs/symptoms of disease process Medication education-adverse effect Nursing assessment with vital signs I have seen patient Barby Reynolds on 12/29/17. My clinical findings support the need for the requested home health care services because: Patient has SOB I certify that my clinical findings support that this patient is homebound because: Poor cardiac reserve Gary Manning MD Dec 29, 2017 07:11
[2017-12-29] MEDS ORDERED: POTASSIUM CHLORIDE 20 MEQ CONTROLLED RELEASE TAB PO ONE (07:30)
--- NOTE | 2017-12-29 08:40 | PD.CARD.PN ---
Subjective Subjective Remarks Feeling much better. Objective Medications Current Medications Medications (Trade) Dose Ordered Sig/Bony Route Start Time Stop Time Status Last Admin Sodium Chloride 500 ml @ 30 mls/hr [id number] IV 12/27/17 14:30 12/27/17 17:03 (Ativan) 1 mg [employer] SL 12/27/17 14:30 12/30/17 14:29 Lactated Ringer's 1,000 ml @ 30 mls/hr Q24H PRN IV 12/27/17 14:30 12/30/17 14:29 Sodium Chloride 500 ml @ 30 mls/hr [id number] PRN IV 12/27/17 14:30 12/30/17 14:29 (Lopressor) 25 mg [employer] PRN PO 12/27/17 14:30 12/30/17 14:29 (Betadine 5% Antisepsis Kit) 1 applic [employer] PRN EACH NARE 12/27/17 14:30 12/30/17 14:29 (Chlorhexidine 2% Cloth) 3 pack [employer] PRN TOPICAL 12/27/17 14:30 12/30/17 14:29 (Atropine Inj) 0.5 mg UNSCH PRN IV PUSH 12/27/17 19:45 (Reglan Inj) 10 mg Q4H PRN IV PUSH 12/27/17 19:45 (Zofran Odt) 4 mg Q4H PRN PO 12/27/17 20:15 (Lexapro) 20 mg DAILY PO 12/28/17 09:00 12/28/17 09:11 (Lasix) 40 mg DAILY PO 12/28/17 09:00 12/28/17 09:11 (Synthroid) 50 mcg DAILY@0600 PO 12/28/17 06:00 12/29/17 06:18 (Ativan) 0.5 mg Q8H PRN PO 12/27/17 19:45 12/28/17 21:22 (Cozaar) 25 mg DAILY PO 12/28/17 09:00 12/28/17 09:11 (Lopressor) 50 mg BID PO 12/27/17 21:00 12/28/17 21:22 (Ultram) 50 mg Q6H PRN PO 12/27/17 19:45 12/28/17 09:12 (Cordarone) 400 mg Q24H PO 12/27/17 21:00 01/02/18 21:01 12/28/17 21:22 (Coumadin) 4 mg DAILY@1600 PO 12/28/17 16:00 12/28/17 16:10 (Cordarone) 200 mg Q24H PO 01/03/18 21:00 (Duoneb Neb) 1 ampule Q2HR NEB PRN NEB 12/27/17 23:15 12/29/17 03:35 (Cepacol Extra Mady (Sugar Free)) 1 lozenge UNSCH PRN BUCCAL 12/28/17 02:45 Vital Signs / I&O Vital Signs Date Time Temp Pulse Resp B/P (MAP) Pulse Ox O2 Delivery O2 Flow Rate FiO2 12/29/17 06:00 71 12/29/17 05:00 68 12/29/17 04:00 73 12/29/17 03:30 97.8 73 18 105/65 (78) 94 12/29/17 03:00 68 12/29/17 02:00 66 12/29/17 01:00 66 12/29/17 00:00 70 12/28/17 23:30 97.6 76 18 109/65 (80) 92 12/28/17 23:00 70 12/28/17 22:00 76 12/28/17 21:00 97.5 80 18 115/71 (86) 92 12/28/17 21:00 80 12/28/17 20:08 93 12/28/17 20:00 76 12/28/17 19:00 80 12/28/17 18:00 83 12/28/17 17:00 77 12/28/17 16:00 74 12/28/17 15:00 75 12/28/17 15:00 97.9 76 18 104/50 (68) 93 12/28/17 14:00 80 12/28/17 13:00 79 12/28/17 12:00 75 12/28/17 11:00 77 12/28/17 11:00 98.6 75 17 119/60 (79) 92 12/28/17 10:05 94 Nasal Cannula 1.00 12/28/17 10:00 66 12/28/17 09:00 75 I/O 6/26/18 6/26/18 12/28/17 12/29/17 12/29/17 12/29/17 07:00 15:00 23:00 07:00 15:00 23:00 Intake Total 720 ml 600 ml 240 ml Output Total 1100 ml 300 ml 400 ml Balance -380 ml 300 ml -160 ml Intake Oral 720 ml 600 ml 240 ml Output Urine Total 1100 ml 300 ml 400 ml # Bowel Movements 0 0 Physical Exam GENERAL: Well-nourished, well-developed patient. SKIN: Warm and dry. Groin sites soft with no bruising or bleeding. HEAD: Normocephalic. EYES: No scleral icterus. No injection or drainage. NECK: Supple, trachea midline. No JVD or lymphadenopathy. CARDIOVASCULAR: Regular rate and rhythm without murmurs, gallops, or rubs. RESPIRATORY: Breath sounds equal bilaterally. No accessory muscle use. GASTROINTESTINAL: Abdomen soft, non-tender, nondistended. EXTREMITIES: No cyanosis, 2+ dependent edema. NEUROLOGICAL: Awake, alert, and oriented x 3. Non-focal. Laboratory Laboratory Tests Test 12/28/17 09:01 12/29/17 05:20 Blood Urea Nitrogen 15 MG/DL 20 MG/DL Creatinine 0.94 MG/DL 0.79 MG/DL Random Glucose 166 MG/DL 103 MG/DL Calcium Level 8.3 MG/DL 8.2 MG/DL Sodium Level 140 MEQ/L 142 MEQ/L Potassium Level 3.9 MEQ/L 3.4 MEQ/L Chloride Level 104 MEQ/L 104 MEQ/L Carbon Dioxide Level 29.2 MEQ/L 31.8 MEQ/L Anion Gap 7 MEQ/L 6 MEQ/L Estimat Glomerular Filtration Rate 57 ML/MIN 70 ML/MIN Assessment and Plan Problem List: (1) S/P ablation of atrial flutter ICD Codes: Z98.890 - Other specified postprocedural states; Z86.79 - Personal history of other diseases of the circulatory system Plan: Groin sites stable, NSR on tele. (2) Afib ICD Codes: I48.91 - Unspecified atrial fibrillation Status: Acute Plan: NSR s/p ablation 12/27. Held for edema post ablation. Improving today on increased lasix. DC home. F/U with Dr. Munson in 3 weeks per my d/w him. Analisa Garza Dec 29, 2017 08:40
--- NOTE | 2017-12-29 08:42 | HHI.PR ---
Subjective Remarks eager for dc Objective Vitals heart reg lung scattered wheeze abd s/nt ext 2 plus edema Vital Signs Date Time Temp Pulse Resp B/P (MAP) Pulse Ox O2 Delivery O2 Flow Rate FiO2 12/29/17 06:00 71 12/29/17 05:00 68 12/29/17 04:00 73 12/29/17 03:30 97.8 73 18 105/65 (78) 94 12/29/17 03:00 68 12/29/17 02:00 66 12/29/17 01:00 66 12/29/17 00:00 70 12/28/17 23:30 97.6 76 18 109/65 (80) 92 12/28/17 23:00 70 12/28/17 22:00 76 12/28/17 21:00 97.5 80 18 115/71 (86) 92 12/28/17 21:00 80 12/28/17 20:08 93 12/28/17 20:00 76 12/28/17 19:00 80 12/28/17 18:00 83 12/28/17 17:00 77 12/28/17 16:00 74 12/28/17 15:00 75 12/28/17 15:00 97.9 76 18 104/50 (68) 93 12/28/17 14:00 80 12/28/17 13:00 79 12/28/17 12:00 75 12/28/17 11:00 77 12/28/17 11:00 98.6 75 17 119/60 (79) 92 12/28/17 10:05 94 Nasal Cannula 1.00 12/28/17 10:00 66 12/28/17 09:00 75 Result Diagram: 12/27/17 1415 12/29/17 0520 A/P Problem List: (1) Afib ICD Codes: I48.91 - Unspecified atrial fibrillation Status: Acute Plan: Pt is 77 yo woman with recurrent afib/rvr and hypothyroidism. Says she was hospitalized in [place] until early December and after dc she has had problems with sob with exertion and lower extremity edema. She reports developing a rash her doctor changed the formulation of warfarin. She was admitted yesterday after an EPS with Dr Munson with RF afib ablation, left atrial tach ablation, pulm vein isolation, posterior ablation, mitral valve isolation, mitral line creation, roof line creation, floor line creation, and cardioversion. After the procedure pt was hypoxic requiring 4lnc. She was wheezing and sent to [facility] overnight. wean off o2. walk test arrange [facility] lasix today ambulate IS try to dc later today. Gary Manning MD Dec 29, 2017 08:42
[2017-12-29] MEDS ORDERED: FUROSEMIDE 40 MG/4 ML VIAL IV PUSH ONE (08:45)
[2017-12-29] MEDS: ESCITALOPRAM OXALATE 20 MG TAB PO SCH (08:47)
[2017-12-29] MEDS: METOPROLOL TARTRATE 50 MG TAB PO SCH (08:47)
[2017-12-29] MEDS: LOSARTAN 25 MG TAB PO SCH (08:47)
[2018-01-03] MEDS ORDERED: AMIODARONE 200 MG TAB PO SCH (21:00)
== END 2017-12-29 14:01 | disposition home health service (06) ==
LOC: HDOC 13:50 → HDIC 13:52 → HCIS 20:49 → HDOC 12-28 12:39 → HCIS 12-28 12:40
PROVIDERS: ADMIT Internal Medicine Interventional Cardiology; ATTEND Internal Medicine Interventional Cardiology
DX: I48.91 Unspecified atrial fibrillation (principal); R09.02 Hypoxemia; R60.9 Edema, unspecified; I10 Essential (primary) hypertension; E03.9 Hypothyroidism, unspecified; Z79.01 Long term (current) use of anticoagulants; Z86.79 Personal history of other diseases of the circulatory system
CPT/HCPCS: 00537; 80048; 85002; 85025; 85610; 85730; 86077; 86850; 86870; 86900; 86901; 86902; 86920; 86922; 92960; 93005; 93613; 93623; 93656; 93662; 94150; 94618; 94640; 94664; 96374; 96376; 97163; C1730; C1731; C1732; C1759; C1760; C1766; C2630; G0269; G0378; G8987; G8988; J1100; J1644; J1940; J1956; J2250; J2370; J2405; J2720; J3010; J7040; J7613